=== PATIENT | female | born 1990 | race Caucasian/White ===

== ENCOUNTER 2020-04-19 15:51 | Outpatient (CLI) | payer MEDICAID ==
[~2020-04-19] VITALS: Ht 170.2 cm; Wt 95.0 kg
[~2020-04-19 15:51] MED LIST: LEVO25TA2 PO; LISI5TAB7 PO; METO25TA35 PO
[2020-04-19 15:57] VITALS: BP 131/65
== END 2020-04-19 17:55 | disposition home or self-care (01) ==
LOC: LDOP 15:51
PROVIDERS: ATTEND Obstetrics & Gynecology
DX: O32.1XX0 Maternal care for breech presentation, not applicable or unspecified (principal); O36.8130 Decreased fetal movements, third trimester, not applicable or unspecified; Z3A.35 35 weeks gestation of pregnancy
CPT/HCPCS: 59025; 76819

== ENCOUNTER → 2020-05-09 | Outpatient (CLI) | payer MEDICAID | END | disposition home or self-care (01) | LOC: STAR 11:17 | PROVIDERS: ATTEND Obstetrics & Gynecology | DX: Z01.812 Encounter for preprocedural laboratory examination (principal); Z20.828 Contact with and (suspected) exposure to other viral communicable diseases | CPT/HCPCS: 36415; 87635 ==

== ENCOUNTER 2020-05-14 01:36 | Inpatient (IN) | payer MEDICAID ==
[~2020-05-14] VITALS: Ht 170.2 cm; Wt 96.8 kg
[2020-05-14 05:45] VITALS: BP 123/73
[2020-05-14] MEDS ORDERED: PREN1TAB62 PO (05:53)
[2020-05-14] MEDS ORDERED: ASPI-515 PO (05:53)
[2020-05-14] MEDS ORDERED: METOCLOPRAMIDE 5 MG/ML, 2ML IV ONE (06:00)
[2020-05-14] MEDS ORDERED: SODIUM CITRATE/CITRIC ACID 30 ML UDC PO ONE (06:00)
[2020-05-14] MEDS ORDERED: LACTATED RINGERS 1,000 ML IVBOLUS ONE (06:00)
[2020-05-14] MEDS ORDERED: LACTATED RINGERS 1,000 ML IV SCH (06:00)
[2020-05-14 06:07] LABS: BASOPHILS % (AUTO) 0 % (0-1); EOSINOPHILS % (AUTO) 1 % (1-7); LYMPHOCYTES % (AUTO) 18 % (22-44); MEAN CORPUSCULAR HEMOGLOBIN 27.1 pg (27.0-34.8); MEAN CORPUSCULAR HGB CONC 32.6 g/dL (32.4-35.8); MEAN PLATELET VOLUME 8.5 fL (7.4-10.4); MONOCYTES % (AUTO) 6 % (2-9); NEUTROPHILS % (AUTO) 75 % (42-75); PLATELET COUNT 227 x10^3/uL (130-400); RED BLOOD COUNT 5.02 x10^6/uL (3.82-5.3); RED CELL DISTRIBUTION WIDTH 14.6 % (9.6-15.2)
[2020-05-14] MEDS ORDERED: OXYTOCIN 30U/ 0.9% NaCL 500ML 500 ML ONE (06:14)
[2020-05-14 06:16] LABS: MD NO
[2020-05-14] MEDS ORDERED: METOCLOPRAMIDE 5 MG/ML, 2ML ONE (06:19)
[2020-05-14] MEDS ORDERED: NEWBORN KIT ONE ×2 (06:19→07:48)
[2020-05-14] MEDS ORDERED: CEFAZOLIN 1,000 MG ONE (06:53)
[2020-05-14] MEDS ORDERED: FENTANYL PF 100 MCG/2ML ONE (06:53)
[2020-05-14] MEDS ORDERED: OXYTOCIN 10 UNITS/ML, 1ML ONE (06:53)
[2020-05-14] MEDS ORDERED: EPINEPHRINE 1 MG/ML, 1ML ONE (06:53)
[2020-05-14] MEDS ORDERED: EPHEDRINE 50 MG/ML, 1ML ONE (06:53)
[2020-05-14] MEDS ORDERED: ONDANSETRON 2MG/ML, 2ML IV PRN (07:30)
[2020-05-14] MEDS ORDERED: CARBOPROST TROMETHAMINE 250 MCG/ML, 1ML IM PRN (07:30)
[2020-05-14] MEDS ORDERED: METHYLERGONOVINE 0.2 MG/ML IM PRN (07:30)
[2020-05-14] MEDS ORDERED: PROMETHAZINE 12.5 MG SUPP PR PRN (07:30)
[2020-05-14] MEDS ORDERED: EPHEDRINE 50 MG/ML, 1ML IVPush PRN (07:30)
[2020-05-14] MEDS ORDERED: MORPHINE SULFATE 4 MG/ML, 1ML IVPush PRN (07:30)
[2020-05-14] MEDS ORDERED: SIMETHICONE 80 MG CHEW TAB PO PRN (07:30)
[2020-05-14] MEDS ORDERED: morphine SULFATE 10 MG/ML, 1ML IVPush PRN ×2 (07:30)
[2020-05-14] MEDS ORDERED: ACETAMINOPHEN 325 MG TABLET PO PRN (07:30)
[2020-05-14] MEDS ORDERED: OXYcodone 5 MG/5 ML ORAL.SOL UDC PO PRN (07:30)
[2020-05-14] MEDS ORDERED: FENTANYL PF 100 MCG/2ML IV PRN (07:30)
[2020-05-14] MEDS ORDERED: MISOPROSTOL 200 MCG TABLET PR PRN (07:30)
[2020-05-14] MEDS ORDERED: ONDANSETRON 2MG/ML, 2ML IVPush PRN (07:30)
[2020-05-14] MEDS ORDERED: MEPERIDINE/PF 25MG/0.5ML IVPush PRN (07:30)
[2020-05-14] MEDS ORDERED: MISOPROSTOL 200 MCG TABLET ONE ×2 (07:37→08:22)
[2020-05-14] MEDS: PRENATAL VIT/IRON/FA 1 EACH TABLET PO SCH (09:00)
[2020-05-14] MEDS: LACTATED RINGERS 1,000 ML IV SCH ×4 (10:02→23:30)
[2020-05-14] MEDS: OXYTOCIN 30U/ 0.9% NaCL 500ML 500 ML IV SCH ×2 (10:03→21:30)
[2020-05-14 10:35] VITALS: BP 114/73
[2020-05-14 13:50] VITALS: BP 128/70
[2020-05-14] MEDS ORDERED: KETOROLAC 30 MG/1 ML ONE (14:59)
[2020-05-14] MEDS: KETOROLAC 30 MG/1 ML IVPush SCH ×2 (17:15→23:28)
[2020-05-14 17:27] VITALS: BP 125/83
[2020-05-14 19:37] LABS: BASOPHILS % (AUTO) 1 % (0-1); EOSINOPHILS % (AUTO) 0 % (1-7); LYMPHOCYTES % (AUTO) 12 % (22-44); MEAN CORPUSCULAR HEMOGLOBIN 27.1 pg (27.0-34.8); MEAN CORPUSCULAR HGB CONC 32.6 g/dL (32.4-35.8); MEAN PLATELET VOLUME 8.3 fL (7.4-10.4); MONOCYTES % (AUTO) 5 % (2-9); NEUTROPHILS % (AUTO) 82 % (42-75); PLATELET COUNT 195 x10^3/uL (130-400); RED BLOOD COUNT 4.55 x10^6/uL (3.82-5.3); RED CELL DISTRIBUTION WIDTH 14.5 % (9.6-15.2)
[2020-05-14 19:39] LABS: MD NO
[2020-05-14] MEDS: OXYcodone/APAP 5/325MG TABLET PO PRN (20:47)
[2020-05-14] MEDS: DOCUSATE 100 MG CAPSULE PO PRN (20:47)
[2020-05-14 21:45] VITALS: BP 129/76
[2020-05-14 23:34] VITALS: BP 120/73
[2020-05-15] MEDS: OXYcodone/APAP 5/325MG TABLET PO PRN ×5 (02:10→23:59)
[2020-05-15] MEDS: LACTATED RINGERS 1,000 ML IV SCH (03:30)
[2020-05-15] MEDS: OXYTOCIN 30U/ 0.9% NaCL 500ML 500 ML IV SCH (03:30)
[2020-05-15] MEDS: KETOROLAC 30 MG/1 ML IVPush SCH (05:00)
[2020-05-15] MEDS: IBUPROFEN 600 MG TABLET PO PRN ×4 (06:12→23:58)
[2020-05-15 07:15] VITALS: BP 121/80
[2020-05-15] MEDS: PRENATAL VIT/IRON/FA 1 EACH TABLET PO SCH (09:00)
[2020-05-15] MEDS: DOCUSATE 100 MG CAPSULE PO PRN ×2 (10:14→23:58)
[2020-05-15 20:00] VITALS: BP 110/71
[2020-05-16] MEDS: IBUPROFEN 600 MG TABLET PO PRN ×3 (06:02→18:01)
[2020-05-16] MEDS: OXYcodone/APAP 5/325MG TABLET PO PRN ×3 (06:03→18:01)
[2020-05-16 07:00] VITALS: BP 120/66
[2020-05-16] MEDS: DOCUSATE 100 MG CAPSULE PO PRN (08:21)
[2020-05-16] MEDS: PRENATAL VIT/IRON/FA 1 EACH TABLET PO SCH (08:22)
[2020-05-16] MEDS ORDERED: OXYcodone/APAP 5/325MG TABLET ONE (11:59)
[2020-05-16 20:00] VITALS: BP 124/76
[2020-05-17] MEDS: IBUPROFEN 600 MG TABLET PO PRN ×2 (00:19→06:17)
[2020-05-17] MEDS: DOCUSATE 100 MG CAPSULE PO PRN ×2 (00:19→07:41)
[2020-05-17] MEDS: OXYcodone/APAP 5/325MG TABLET PO PRN ×2 (00:20→06:17)
[2020-05-17 07:00] VITALS: BP 123/70
[2020-05-17] MEDS: PRENATAL VIT/IRON/FA 1 EACH TABLET PO SCH (08:02)
[2020-05-17] MEDS ORDERED: SENN-92 PO (09:45)
[2020-05-17] MEDS ORDERED: OXYC-302 PO (09:45)
[2020-05-17] MEDS ORDERED: IBUP-1222 PO (09:45)
== END 2020-05-17 12:15 | disposition home or self-care (01) | DRG 787 ==
LOC: LDIP 05:36 → 2NW 10:13
PROVIDERS: ADMIT Obstetrics & Gynecology; ATTEND Obstetrics & Gynecology
PROC: 10D00Z1 Extraction of Products of Conception, Low, Open Approach (ICD-10-PCS; principal; 2020-05-14)
DX: O32.1XX0 Maternal care for breech presentation, not applicable or unspecified (principal); O10.92 Unspecified pre-existing hypertension complicating childbirth; O32.2XX0 Maternal care for transverse and oblique lie, not applicable or unspecified; O34.03 Maternal care for unspecified congenital malformation of uterus, third trimester; O75.89 Other specified complications of labor and delivery; Q51.3 Bicornate uterus; Q51.810 Arcuate uterus; Z37.0 Single live birth; Z3A.39 39 weeks gestation of pregnancy
CPT/HCPCS: 36415; 85025; 86592; 86850; 86900; G0378; J0171; J0690; J1885; J3010; J2270; J2590; J2765; J7120